=== PATIENT | male | born 1975 | race Caucasian/White ===

== ENCOUNTER 2022-01-22 01:42 | Emergency (ER) | payer SELFPAY ==
[~2022-01-22] VITALS: Ht 180.3 cm; Wt 79.4 kg
[2022-01-22 01:46] VITALS: BP_SYST 149
[2022-01-22] MEDS ORDERED: LIDOCAINE/EPI 1% 1:100000 20 ML VIAL INJ ONE (04:00)
[2022-01-22] MEDS ORDERED: NS 1000 ML IV.SOLN IV ONE (04:00)
[2022-01-22] MEDS ORDERED: MORPHINE 4 MG INJ. 4 MG/ML VIAL IVP ONE ×2 (04:00→05:00)
[2022-01-22] MEDS ORDERED: CLINDAMYCIN 300 MG in D5W 50 ML IV ONE (04:00)
[2022-01-22] MEDS ORDERED: CLINDAMYCIN 600 MG in D5W 50 ML IV ONE (04:15)
[2022-01-22] MEDS ORDERED: CLINDAMYCIN 600 mg/50mL D5W 50 ML IV ONE (04:21)
[2022-01-22 06:27] VITALS: BP_SYST 142
== END 2022-01-22 07:05 | disposition left against medical advice (07) ==
LOC: SED 01:42
DX: L03.113 Cellulitis of right upper limb (principal); M79.631 Pain in right forearm; R50.9 Fever, unspecified; F17.200 Nicotine dependence, unspecified, uncomplicated; Z79.899 Other long term (current) drug therapy; Z20.822 Contact with and (suspected) exposure to COVID-19
CPT/HCPCS: 99285; 96365; 10060; 71045; 96375; 87426; 96376; 87804 ×2; 93005; J3490; J2270